=== PATIENT | female | born 1965 | race Two or more races ===

== ENCOUNTER 2020-12-06 10:40 | Outpatient (CLI) | payer OTHER ==
[2020-12-06] MEDS ORDERED: CARB1TAB43 PO (11:48)
[2020-12-06] MEDS ORDERED: ROPI2TAB6 PO (11:48)
[2020-12-06] MEDS ORDERED: CARB1TAB22 PO (11:48)
[2020-12-06] MEDS ORDERED: SOLI5TAB2 PO (11:48)
[2020-12-06] MEDS ORDERED: VITAMIN B12 (11:48)
[2020-12-06] MEDS ORDERED: GABA-826 PO (11:48)
[2020-12-06] MEDS ORDERED: MAGNESIUM (11:48)
[2020-12-06] MEDS ORDERED: AMAN100C7 PO (11:48)
[2020-12-06] MEDS ORDERED: COQ10 (11:48)
[2020-12-06] MEDS ORDERED: MELATONIN (11:48)
[2020-12-06] MEDS ORDERED: VITAMIN D (11:48)
[2020-12-06] MEDS ORDERED: FISH OIL PO (11:48)
[2020-12-06 12:35] LABS: BASOPHILS % (AUTO) 1 % (0-1); EOSINOPHILS % (AUTO) 1 % (1-7); LYMPHOCYTES % (AUTO) 29 % (22-44); MEAN CORPUSCULAR HEMOGLOBIN 30.1 pg (27.0-34.8); MEAN CORPUSCULAR HGB CONC 33.2 g/dL (32.4-35.8); MEAN PLATELET VOLUME 7.7 fL (7.4-10.4); MONOCYTES % (AUTO) 7 % (2-9); NEUTROPHILS % (AUTO) 61 % (42-75); PLATELET COUNT 300 x10^3/uL (130-400); RED BLOOD COUNT 4.68 x10^6/uL (3.82-5.3)
[2020-12-06 12:39] LABS: MD NO
[2020-12-06 12:43] LABS: INTERNATIONAL NORMALIZED RATIO 0.97 (0.93-1.1); PROTHROMBIN TIME 10.3 Seconds (9.6-11.5)
[2020-12-06 13:18] LABS: ALBUMIN 3.9 g/dL (3.4-5.0); ANION GAP 4 mmol/L (5-15); CALCIUM 8.9 mg/dL (8.5-10.1); CHLORIDE 106 mmol/L (98-107)
[2020-12-06 13:22] LABS: ALANINE AMINOTRANSFERASE 15 U/L (12-78); ALKALINE PHOSPHATASE 91 U/L (45-117); BILIRUBIN,TOTAL 0.8 mg/dL (0.2-1.0); CREATININE 0.95 mg/dL (0.55-1.02)
== END 2020-12-06 23:59 | disposition home or self-care (01) ==
LOC: STAR 10:40
PROVIDERS: ATTEND Neurological Surgery
DX: Z01.818 Encounter for other preprocedural examination (principal); G20 Parkinson's disease; I44.0 Atrioventricular block, first degree
CPT/HCPCS: 36415; 80053; 85025; 85610; 85730; 93005

== ENCOUNTER 2020-12-13 07:00 | Inpatient (IN) | payer OTHER ==
[~2020-12-13] VITALS: Ht 157.5 cm; Wt 65.9 kg
[~2020-12-13 07:00] MED LIST: AMAN100C7 PO; CARB1TAB22 PO; CARB1TAB43 PO; COQ10; FISH OIL PO; GABA-826 PO; MAGNESIUM; MELATONIN; ROPI2TAB6 PO; SOLI5TAB2 PO; VITAMIN B12; VITAMIN D
[2021-01-03 06:05] VITALS: BP 131/76
[2021-01-03] MEDS ORDERED: CHLORHEXIDINE 15 ML UDC MM STA (06:11)
[2021-01-03] MEDS ORDERED: LACTATED RINGERS 1,000 ML IV SCH (06:30)
[2021-01-03] MEDS ORDERED: BUPIVACAINE/PF 0.5% ONE (06:48)
[2021-01-03] MEDS ORDERED: CEFUROXIME 1.5 GM ONE (06:49)
[2021-01-03] MEDS ORDERED: LIDOCAINE/MPF 2%-EPI 1:200K, 20 ML ONE (06:49)
[2021-01-03] MEDS ORDERED: MINERAL OIL 10 ML VIAL MC ONE (06:49)
[2021-01-03] MEDS ORDERED: DEXMEDETOMIDINE 200 MCG/2 ML ONE ×2 (06:49→07:23)
[2021-01-03] MEDS ORDERED: EPINEPHRINE 1 MG/ML, 1ML ONE (06:50)
[2021-01-03] MEDS ORDERED: BACITRACIN 50,000 UNIT ONE (06:50)
[2021-01-03] MEDS ORDERED: BACITRACIN OINT 500U/GM, 15 GM ONE (06:50)
[2021-01-03] MEDS ORDERED: SODIUM BICARBONATE 1 MEQ/ML, 50ML VIAL ONE (06:52)
[2021-01-03] MEDS ORDERED: PROPOFOL 10 MG/ML, 20ML ONE (07:40)
[2021-01-03] MEDS ORDERED: OXYcodone 5 MG/5 ML ORAL.SOL UDC PO PRN (11:30)
[2021-01-03] MEDS ORDERED: PROMETHAZINE 25 MG SUPP PR PRN (11:30)
[2021-01-03] MEDS ORDERED: HYDROmorphone 1 MG/ML, 1ML INJ IVPush PRN (11:30)
[2021-01-03] MEDS ORDERED: ONDANSETRON 2MG/ML, 2ML IVPush PRN (11:30)
[2021-01-03] MEDS ORDERED: PROMETHAZINE 25 MG/ML, 1ML IVPush PRN (11:30)
[2021-01-03] MEDS ORDERED: LORazepam 2 MG/ML, 1ML IVPush PRN (11:30)
[2021-01-03] MEDS ORDERED: ACETAMINOPHEN 325 MG TABLET PO PRN ×2 (11:30→12:30)
[2021-01-03] MEDS ORDERED: FENTANYL PF 100 MCG/2ML ONE (12:24)
[2021-01-03] MEDS ORDERED: ACETAMINOPHEN 650 MG/20.3 ML UDC ONE (12:24)
[2021-01-03] MEDS: FENTANYL PF 100 MCG/2ML IV PRN ×3 (12:29→13:51)
[2021-01-03] MEDS ORDERED: BISACODYL 10 MG SUPP PR PRN (12:30)
[2021-01-03] MEDS ORDERED: POTASSIUM CHLORIDE 40 MEQ in SODIUM CHLORIDE 0.9% 1,000 ML IV SCH (12:30)
[2021-01-03] MEDS ORDERED: MAGNESIUM HYDROXIDE 8%, 30ML UDC PO PRN (12:30)
[2021-01-03] MEDS ORDERED: morphine SULFATE 10 MG/ML, 1ML IV PRN (12:30)
[2021-01-03] MEDS ORDERED: CARBIDOPA/LEVODOPA 25 MG/100 MG TABLET PO ONE ×3 (13:00→18:30)
[2021-01-03] MEDS: AMANTADINE 100 MG CAPSULE PO SCH (14:35)
[2021-01-03] MEDS: CEFAZOLIN PMX 1GM/50ML 50 ML IVPB SCH ×2 (14:36→21:30)
[2021-01-03 16:55] LABS: ANION GAP 8 mmol/L (5-15); CALCIUM 8.3 mg/dL (8.5-10.1); CHLORIDE 113 mmol/L (98-107); CREATININE 0.64 mg/dL (0.55-1.02)
[2021-01-03] MEDS: OXYcodone/APAP 5/325MG TABLET PO PRN ×2 (17:33→21:04)
[2021-01-03] MEDS ORDERED: CARBIDOPA/LEVODOPA CR 25 MG/100 MG TABLET PO SCH (21:00)
[2021-01-03] MEDS ORDERED: GABAPENTIN 100 MG CAPSULE PO SCH (21:00)
[2021-01-04] MEDS: OXYcodone/APAP 5/325MG TABLET PO PRN ×2 (00:37→09:06)
[2021-01-04 04:12] VITALS: BP 122/67
[2021-01-04] MEDS ORDERED: CEFAZOLIN PMX 1GM/50ML 50 ML IVPB ONE (05:30)
[2021-01-04] MEDS ORDERED: SENNA/DOCUSATE TABLET PO SCH (09:00)
[2021-01-04] MEDS ORDERED: ROPINIROLE 1MG TABLET PO SCH (09:00)
[2021-01-04] MEDS ORDERED: CARBIDOPA/LEVODOPA 25 MG/100 MG TABLET PO SCH (09:00)
[2021-01-04] MEDS ORDERED: TEMPLATE NON-FORMULARY MED. (Solifenacin Succinate** (Vesicare**) 5 MG) HOMEMEDPO SCH (09:00)
[2021-01-04] MEDS: AMANTADINE 100 MG CAPSULE PO SCH (09:05)
[2021-01-04] MEDS ORDERED: SODIUM CHLORIDE 0.9%, 500ML IVBOLUS ONE (11:00)
[2021-01-04] MEDS ORDERED: SODIUM CHLORIDE 0.9% 500 ML IV ONE (11:00)
[2021-01-04 11:19] LABS: BASOPHILS % (AUTO) 1 % (0-1); EOSINOPHILS % (AUTO) 2 % (1-7); LYMPHOCYTES % (AUTO) 17 % (22-44); MEAN CORPUSCULAR HGB CONC 33.2 g/dL (32.4-35.8); MEAN PLATELET VOLUME 7.3 fL (7.4-10.4); MONOCYTES % (AUTO) 7 % (2-9); NEUTROPHILS % (AUTO) 74 % (42-75); PLATELET COUNT 272 x10^3/uL (130-400); RED BLOOD COUNT 4.47 x10^6/uL (3.82-5.3); RED CELL DISTRIBUTION WIDTH 12.7 % (9.6-15.2)
[2021-01-04 11:25] LABS: MD NO
[2021-01-04 11:27] LABS: ANION GAP 7 mmol/L (5-15); CALCIUM 8.6 mg/dL (8.5-10.1); CHLORIDE 110 mmol/L (98-107); CREATININE 0.82 mg/dL (0.55-1.02)
[2021-01-04] MEDS ORDERED: OXYC1TAB14 PO (15:19)
== END 2021-01-04 16:44 | disposition home or self-care (01) | DRG 27 ==
LOC: EDSTATUS 07:30 → ORIP 01-03 05:39 → CCU 01-03 10:39 → DCLOUNGE 01-04 16:28
PROVIDERS: ADMIT Neurological Surgery; ATTEND Internal Medicine
PROC: 00H03MZ Insertion of Neurostimulator Lead into Brain, Percutaneous Approach (ICD-10-PCS; principal; 2021-01-03 07:30)
DX: G20 Parkinson's disease (principal); G24.9 Dystonia, unspecified; Z88.6 Allergy status to analgesic agent
CPT/HCPCS: 36415; S0020; 70450; 80048; 85025; 86850; 86900; 87081; C1713; G0378; J0171; J0690; J0697; J2704; J3010; J3480; C1767; J7030; J7040; J7120

== ENCOUNTER 2020-12-28 09:28 | Outpatient (CLI) | payer OTHER | END 2020-12-28 23:59 | disposition home or self-care (01) | LOC: STAR 09:28 | PROVIDERS: ATTEND Anesthesiology | DX: Z20.822 Contact with and (suspected) exposure to COVID-19 (principal) | CPT/HCPCS: 87635 ==

== ENCOUNTER → 2021-01-17 | Outpatient (CLI) | payer OTHER ==
[~2021-01-17] MED LIST changes: +CARB1TAB44 PO; +CARB1TAB47 PO; +OXYC1TAB14 PO; +ROPI2TAB PO
[2021-01-17 11:32] LABS: BASOPHILS % (AUTO) 1 % (0-1); EOSINOPHILS % (AUTO) 2 % (1-7); LYMPHOCYTES % (AUTO) 22 % (22-44); MEAN CORPUSCULAR HEMOGLOBIN 29.9 pg (27.0-34.8); MEAN CORPUSCULAR HGB CONC 33.1 g/dL (32.4-35.8); MEAN PLATELET VOLUME 7.2 fL (7.4-10.4); MONOCYTES % (AUTO) 6 % (2-9); NEUTROPHILS % (AUTO) 69 % (42-75); PLATELET COUNT 413 x10^3/uL (130-400); RED BLOOD COUNT 5.06 x10^6/uL (3.82-5.3); RED CELL DISTRIBUTION WIDTH 12.6 % (9.6-15.2)
[2021-01-17 11:35] LABS: MD NO
[2021-01-17 11:44] LABS: ANION GAP 4 mmol/L (5-15); CALCIUM 9.6 mg/dL (8.5-10.1); CHLORIDE 105 mmol/L (98-107); CREATININE 0.93 mg/dL (0.55-1.02)
== END | disposition home or self-care (01) ==
LOC: STAR 10:29
PROVIDERS: ATTEND Neurological Surgery
DX: Z01.812 Encounter for preprocedural laboratory examination (principal); Z20.822 Contact with and (suspected) exposure to COVID-19; G20 Parkinson's disease
CPT/HCPCS: 36415; 80048; 85025; U0003

== ENCOUNTER 2021-01-23 08:58 | Day surgery (SDC) | payer OTHER ==
[~2021-01-23] VITALS: Ht 157.5 cm; Wt 61.0 kg
[2021-01-23 09:39] VITALS: BP 122/80
[2021-01-23] MEDS ORDERED: FENTANYL PF 250 MCG/5ML ONE (09:46)
[2021-01-23] MEDS ORDERED: PROPOFOL 50 ML ONE ×2 (09:46→13:12)
[2021-01-23] MEDS ORDERED: BACITRACIN 50,000 UNIT ONE (09:47)
[2021-01-23] MEDS ORDERED: BACITRACIN OINT 500U/GM, 15 GM ONE (09:47)
[2021-01-23] MEDS ORDERED: BUPIVACAINE/PF-EPI 0.5% 1:200K ONE (09:47)
[2021-01-23] MEDS ORDERED: CHLORHEXIDINE 15 ML UDC MM ONE (10:00)
[2021-01-23] MEDS ORDERED: LACTATED RINGERS 1,000 ML IV SCH (10:00)
[2021-01-23] MEDS ORDERED: LIDOCAINE-MPF 1%, 2ML ONE (10:20)
[2021-01-23] MEDS ORDERED: LIDOCAINE-MPF 1%, 2ML INFIL ONE (10:30)
[2021-01-23] MEDS ORDERED: ROCURONIUM 10 MG/ML,10ML ONE (12:15)
[2021-01-23] MEDS ORDERED: ONDANSETRON 2MG/ML, 2ML ONE (12:15)
[2021-01-23] MEDS ORDERED: SUCCINYLCHOLINE 20 MG/ML, 10ML ONE (12:15)
[2021-01-23] MEDS ORDERED: CEFAZOLIN 1,000 MG ONE (12:15)
[2021-01-23] MEDS ORDERED: EPHEDRINE 50 MG/ML, 1ML IVPush PRN (13:00)
[2021-01-23] MEDS ORDERED: DIAZEPAM 5 MG/ML, 2ML IVPush PRN (13:00)
[2021-01-23] MEDS ORDERED: LABETALOL 5MG/ML, 20ML IV PRN (13:00)
[2021-01-23] MEDS ORDERED: DIPHENHYDRAMINE 50 MG/ML, 1ML IVPush PRN (13:00)
[2021-01-23] MEDS ORDERED: HYDROmorphone 1 MG/ML, 1ML INJ IVPush PRN (13:00)
[2021-01-23] MEDS ORDERED: EPHEDRINE 50 MG/ML, 1ML IM PRN (13:00)
[2021-01-23] MEDS ORDERED: ONDANSETRON 2MG/ML, 2ML IVPush PRN (13:00)
[2021-01-23] MEDS ORDERED: ACETAMINOPHEN 325 MG TABLET PO PRN (13:00)
[2021-01-23] MEDS ORDERED: FENTANYL PF 100 MCG/2ML ONE (14:33)
[2021-01-23] MEDS ORDERED: OXYcodone 5 MG/5 ML ORAL.SOL UDC ONE ×2 (14:34→14:56)
[2021-01-23] MEDS: FENTANYL PF 100 MCG/2ML IV PRN ×2 (14:34→14:45)
[2021-01-23] MEDS: OXYcodone 5 MG/5 ML ORAL.SOL UDC PO PRN ×2 (14:35→14:58)
[2021-01-23] MEDS ORDERED: CARBIDOPA/LEVODOPA CR 50 MG/200 MG TABLET PO SCH (21:00)
[2021-01-23] MEDS ORDERED: GABAPENTIN 100 MG CAPSULE PO SCH (21:00)
[2021-01-24] MEDS ORDERED: AMANTADINE 100 MG CAPSULE PO SCH (09:00)
[2021-01-24] MEDS ORDERED: ROPINIROLE HCL 2 MG PO SCH (09:00)
[2021-01-24] MEDS ORDERED: TEMPLATE NON-FORMULARY MED. (Carbidopa/Levodopa** (Carbidopa-Levo 25-100 Mg Odt**) 1 TAB) PO SCH (09:00)
[2021-01-24] MEDS ORDERED: TEMPLATE NON-FORMULARY MED. (Solifenacin Succinate** (Vesicare**) 5 MG) PO SCH (09:00)
== END 2021-01-23 16:35 | disposition home or self-care (01) ==
LOC: OUT 08:58
PROVIDERS: ATTEND Neurological Surgery
DX: G20 Parkinson's disease (principal); Z79.1 Long term (current) use of non-steroidal anti-inflammatories (NSAID); Z79.891 Long term (current) use of opiate analgesic; Z79.899 Other long term (current) drug therapy; Z88.5 Allergy status to narcotic agent; Z82.49 Family history of ischemic heart disease and other diseases of the circulatory system
CPT/HCPCS: 61886; C1767; C1883; J0330; J0690; J2405; J2704; J3010; J7120